=== PATIENT | female | born 1990 | race Caucasian/White ===

== ENCOUNTER → 2021-12-03 15:53 | Outpatient (CLI) | payer OTHER, SELFPAY ==
--- NOTE | 2021-12-03 15:59 | DI.ECHO.S_ITS ---
[facility] +---------+ : : [address] : [place] [place] : : : : [id number] : : : : Phone: [phone]+ Echocardiogram Report + + :Name: MINOO CRABTREE Study Date: 12/03/2021 Height: 66 in : :[facility] ReadingLocation: Weight: 130 lb : : Gender: Female BSA: 1.7 m2 : :: 1990 Age: 31 yrs BP: 137/89 mmHg: :Reason For Study: Hypermobility Syndrome : :Ordering Physician: : :GRACY LIN Performed By: Adi Edwards : :Referring: GRACY LIN : + + Interpretation Summary The left ventricle is normal in size and wall thickness. Left ventricular systolic function is normal. The ejection fraction is estimated to be 60-65%. There are no focal wall motion abnormalities. Diastolic parameters suggest probable normal left ventricular diastolic function and normal filling pressures. The right ventricle is normal in size and function. Pulmonary artery pressures cannot be estimated because of the lack of a measurable TR jet velocity. Both atria are normal in size. There is no significant valvular heart disease. The aortic root is normal size. Procedure: A two-dimensional transthoracic echocardiogram with color flow and Doppler was performed. The study quality was technically adequate. There is no prior echocardiogram noted for this patient. The patient was in normal sinus rhythm during the exam. Left Ventricle: The left ventricle is normal in size and wall thickness. Left ventricular systolic function is normal. The ejection fraction is estimated to be 60-65%. There are no focal wall motion abnormalities. Diastolic parameters suggest probable normal left ventricular diastolic function and normal filling pressures. Right Ventricle: The right ventricle is normal in size and function. Atria: Both atria are normal in size. The interatrial septum grossly appears intact with no obvious evidence for an atrial septal defect. Mitral Valve: The mitral valve is normal in structure and function. There is trace mitral regurgitation. Aortic Valve: The aortic valve is normal in structure and function. No aortic regurgitation is present. Tricuspid Valve: The tricuspid valve is normal in structure and function. There is trace tricuspid regurgitation. Pulmonary artery pressures cannot be estimated because of the lack of a measurable TR jet velocity. Pulmonic Valve: The pulmonic valve is normal in structure and function. There is no pulmonic valvular regurgitation. There is no significant valvular heart disease. Great Vessels: The aortic root is normal size. The dimensions of the ascending aorta are normal. The IVC is of normal diameter and collapses greater than 50% with a sniff. This suggests a low right atrial pressure of 3 mm Hg. Pericardium/ Pleura There is no pericardial effusion. There is no pleural effusion. MMode/2D Measurements & Calculations LVIDd: 4.5 cm LVOT diam: 1.9 cm LVIDs: 3.1 cm Ao root diam: 3.0 cm FS: 31.1 % asc Aorta Diam: 2.8 cm IVSd: 0.60 cm LVPWd: 0.70 cm LV feliz. diameter/BSA (cm/m^2): 2.7 LV sys. diameter/BSA (cm/m^2): 1.9 LA dimension: 2.7 cm RA long axis: 4.7 cm LA A2 area: 17.1 cm2 LA A4 area: 13.5 cm2 LA length (vol): 5.5 cm LA vol: 36.0 ml LA vol index: 21.6 ml/m2 TAPSE_phl: 2.0 cm Doppler Measurements & Calculations Ao V2 max: 128.0 cm/sec LVOT Max Sixto: 114.0 cm/sec Ao V2 mean: 91.4 cm/sec LV V1 max P.2 mmHg Ao max P.0 mmHg LV V1 VTI: 20.9 cm Ao mean P.0 mmHg BRAYAN(I,D): 2.6 cm2 Ao V2 VTI: 22.8 cm BRAYAN(V,D): 2.5 cm2 sev ratio: 0.92 BRAYAN indexed to BSA (cm^2/m^2): 1.6 MV E max sixto: 79.7 cm/sec SV(LVOT): 59.3 ml MV A max sixto: 60.0 cm/sec MV E/A: 1.3 Med Peak E' Sixto: 10.4 cm/sec E/E' med: 7.7 Lat Peak E' Sixto: 14.9 cm/sec E/E' lat: 5.3 E/e' average: 6.5 MV dec time: 0.20 sec AV VR_phl: 0.89 MV P1/2t-pr_phl: 59.0 msec BRAYAN(VTI)/BSA_phl: 1.6 Reading Physician:05:36 PM
== END ==
PROVIDERS: Referring Provider Physician Assistant; Visit Provider Physician Assistant
DX: M35.7 Hypermobility syndrome (principal)
CPT/HCPCS: 93306

== ENCOUNTER → 2023-04-06 11:07 | Outpatient (CLI) | payer OTHER, SELFPAY | PROVIDERS: Referring Provider Family Medicine; Visit Provider Family Medicine | DX: Z23 Encounter for immunization (principal) | CPT/HCPCS: 90471; 90686 ==